=== PATIENT | male | born 1970 | race Caucasian/White ===

== ENCOUNTER 2016-08-29 08:43 | Emergency (ER) | payer OTHER ==
[~2016-08-29] VITALS: Ht 177.8 cm; Wt 113.6 kg
[2016-08-29 08:46] VITALS: BP 165/88; PULSE 60; RESP 18; O2SAT 97
--- NOTE | 2016-08-29 09:09 | ED.REPORT ---
HPI-Dizziness / Weakness Date of Service August 29, 2016 ED Provider: Gutierrez Gonzalez MD Patient is a 46 year old male who presents to the ED complaining of dizziness onset 0500. Associated symptoms include nausea and vomiting. The patient states that he strained his neck two days ago. He reports some weakness but explains this is due to physical labor. Patient denies chest pain, shortness of breath, diarrhea, diaphoresis, numbness or changes in speech. The patient states that laying down helps resolve the dizziness and it worsens when he tries to stand. He describes it as a spinning sensation and that it happened all of a sudden this morning. Patient doesn't notice if turning his head to one side makes it worse. The patient has had a similar episode 7 years ago but it resolved when he went to the doctor. He denies recent trauma, sinus infection or upper respiratory infection. Nursing Notes Stated Complaint: DIZZY/ VOMITING Chief Complaint: General Complaint Nursing Notes Reviewed: Yes ([employer], [employer] not reconciled) Allergies: Coded Allergies: No Known Allergies (Unverified , 08/29/16) Scheduled PRN Lorazepam (Lorazepam) 1 Mg Tablet 1 MG PO TID PRN PRN vertigo Meclizine (Bonine) 25 Mg Tab.chew 25 MG PO Q6H PRN PRN vertigo General Time Seen by MD: 09:05 Chief Complaint Dizzy Hx Obtained From: Patient Arrived By: Walk-in Onset Occurred: 1 - 4 hours ago Symptom Duration: Since onset Recent Healthcare: No recent doctor visit, No recent hospitalization Similar Sx Previous: No Past Medical History Past Medical History denies Past Surgical History denies Smoking History Never Smoker Social History chewing tobacco Drug Use: Denies drug use Other Social History: Good social support Ambulatory Status Independent Review of Systems Respiratory: Denies: Non-productive cough, Shortness of breath Cardiovascular: Denies: Chest pain GI: Reports: Nausea, Vomiting, Denies: Diarrhea Skin: Denies Diaphoresis Neurologic: Reports: Dizziness, Spinning sensation, Weakness (due to labor), Denies: Numbness, Slurred speech Complete sys rev & neg: except as marked. Musculoskeletal: Reports: Neck pain Physical Exam Initial Vital Signs Vital Signs (First) Date Time Temp Pulse Resp B/P Pulse Ox O2 Delivery O2 Flow Rate FiO2 08/29/16 08:46 36.0 60 18 165/88 97 Room Air Initial VS: Reviewed, Vital signs normal General/Constitutional: Awake, Alert, No acute distress Head / Eyes: Atraumatic, Normocephalic, PERRL, EOMI, No nystagmus Respiratory / Chest: Atraumatic, Breath sounds NL, Breath sounds = bilat, No respiratory distress Cardiovascular: Heart rate NL, Regular rhythm, Heart sounds NL Neurologic: Oriented X3, Speech NL, No motor deficits, No sensory deficits Lower Extremity / Pelvis / MS: Atraumatic, Full range of motion Skin: Atraumatic, Color NL, No rash, Warm, Dry Psychiatric: Affect NL, Mood NL Upper Extremity / MS: Atraumatic, Full range of motion Re-Eval/Medical Decision Source of Hx: Old records (none in EMR) Re-Evaluation/Progress #1: Time of Eval: 10:30 Patient Status: Condition unchanged Re-Evaluation/Progress Note: Patient reports he is still feeling dizzy and is now a little drowsy. Re-Evaluation/Progress #2: Time of Eval: 12:05 Patient Status: Mild relief Re-Evaluation/Progress Note: Discussed results and plan for discharge. The patient understands and agrees to the plan for discharge. All questions were addressed. Counseled Regarding: Diagnosis, Need for follow-up, When/why to return to ED Patient Discharge & Departure Impression: Primary Impression: Vertigo Disposition: Home Discharge Condition All VS Reviewed: Yes Condition: Stable Additional Instructions: 1. You describe classic symptoms of peripheral vertigo. 2. Symptoms are expected to improve with time over the next several days. 3. Move slowly. 4. Take meclizine 25 mg up to 3 times a day and if needed for more severe symptoms, and the lorazepam up to 3 times a day. Note these medicines do cause some drowsiness. You should not be driving while taking these medicines, or until the symptoms of vertigo off completely resolved. 5. Return if new, worsening or uncontrolled symptoms occur. Scribe Attestation Portions of this note were transcribed by Argenis Elizabeth. I, Dr. Gonzalez personally performed the history, physical exam and medical decision-making; I reviewed and confirmed the accuracy of the information in the transcribed note. Signed by: Luba Ferro, 08/29/16 and Gutierrez Garcia MD August 29, 2016 09:09 Zaira Elizabeth 28, 2017 09:19
[2016-08-29] MEDS ORDERED: Promethazine 50 mg/mL Inj IM ONE (09:20)
[2016-08-29] MEDS ORDERED: MECL-114 PO (11:43)
[2016-08-29] MEDS ORDERED: LORA1TAB PO (11:43)
[2016-08-29 12:17] VITALS: BP 165/88; PULSE 60; RESP 18; O2SAT 97
== END 2016-08-29 12:19 | disposition home or self-care (01) ==
LOC: SED 08:43
DX: R42 Dizziness and giddiness (principal); R11.2 Nausea with vomiting, unspecified
CPT/HCPCS: 96372; 99284; J1200; J2060; J2550